=== PATIENT | male | born 1955 | race Two or more races ===

== ENCOUNTER → 2016-10-17 | Outpatient (CLI) | payer OTHER, MEDICAID ==
[~2016-10-17] MED LIST: ALPR0.5T7 PO; AMIT10TA6 PO; EMTRTAB7 PO; GEMF600T3 PO; MULTCHW PO; PRAV20TA3 PO; [UNRECOGNIZED DRUG - CODE] PO; [UNRECOGNIZED DRUG - CODE] PO; [UNRECOGNIZED DRUG - CODE] PO
[2016-10-17 15:03] LABS: Albumin 4.1 g/dL (3.4-5.0); BUN/Creatinine Ratio 17.6; Bilirubin, Total 0.5 mg/dL (0.2-1.0); Potassium 3.9 mmol/L (3.5-5.1); Total Protein 8.1 g/dL (6.4-8.2)
[2016-10-17 15:19] LABS: Basophils # (auto) 0 uL; Basophils % (auto) 0.4 % (0.0-2.0); DEFINITIVE VIEW TRANSMISSION; Eosinophils # (auto) 0.2 uL; Eosinophils % (auto) 3.1 % (0.0-7.0); Hematocrit 51.2 % (41.0-53.0); Hemoglobin 17.5 g/dL (13.5-17.5); Lymphocytes # (auto) 1.8 uL; Lymphocytes % (auto) 35.9 % (10.0-50.0); Mean Corpuscular Hemoglobin 36.2 pg (28.0-32.0); Mean Corpuscular Hgb Conc. 34.2 g/dL (32.0-36.0); Mean Corpuscular Volume 105.8 fL (80.0-100.0); Mean Platelet Volume 8.2 fL (7.4-10.4); Monocytes # (auto) 0.4 uL; Monocytes % (auto) 8.4 % (0.0-12.0); Neutrophils # (auto) 2.6 uL; Neutrophils % (auto) 52.2 % (37.0-80.0); Platelet Count (auto) 208 10^3/uL (140-450); Red Cell Distribution Width 13.9 % (11.6-16.0)
[2016-10-17 18:37] LABS: Macrocytosis Moderate; Platelet Estimate Adequate
[2016-10-18 05:06] LABS: Hematocrit 49.5 % (37.5-51.0); Hemoglobin 17.6 g/dL (12.6-17.7); Immature Granulocytes 0 % (.); MCHC 35.6 g/dL (31.5-35.7); MCV 104 fL (79-97); Monocytes 8 % (.); Neutrophils 52 % (.); Neutrophils (Absolute) 2.7 x10E3/uL (1.4-7.0); Platelets 190 x10E3/uL (150-379); RBC 4.76 x10E6/uL (4.14-5.80); RDW 13.8 % (12.3-15.4); WBC 5.1 x10E3/uL (3.4-10.8)
== END | disposition home or self-care (01) ==
LOC: LAB 13:10
PROVIDERS: ATTEND Internal Medicine
DX: B20 Human immunodeficiency virus [HIV] disease (principal); N34.2 Other urethritis
CPT/HCPCS: 36415; 80053; 84439; 84443; 85025; 85652; 86360; 86592; 86705; 86706; 87340

== ENCOUNTER → 2017-02-01 | Outpatient (CLI) | payer OTHER, MEDICAID ==
[2017-02-01 16:58] LABS: Albumin 4.4 g/dL (3.4-5.0); BUN/Creatinine Ratio 16.4; Calcium 8.6 mg/dL (8.5-10.1); Potassium 3.9 mmol/L (3.5-5.1)
[2017-02-01 17:00] LABS: Bilirubin, Total 0.5 mg/dL (0.2-1.0)
[2017-02-01 17:02] LABS: Basophils # (auto) 0 uL; Basophils % (auto) 0.3 % (0.0-2.0); CONDITION Y; DEFINITIVE SEE PRINTOUT; Eosinophils # (auto) 0.2 uL; Eosinophils % (auto) 3.5 % (0.0-7.0); Hematocrit 49.4 % (41.0-53.0); Hemoglobin 17.3 g/dL (13.5-17.5); Lymphocytes # (auto) 1.3 uL; Lymphocytes % (auto) 24.1 % (10.0-50.0); Mean Corpuscular Hemoglobin 37.3 pg (28.0-32.0); Mean Corpuscular Volume 106.7 fL (80.0-100.0); Monocytes # (auto) 0.5 uL; Monocytes % (auto) 9.8 % (0.0-12.0); Neutrophils # (auto) 3.4 uL; Neutrophils % (auto) 62.3 % (37.0-80.0); Platelet Count (auto) 228 10^3/uL (140-450); Red Cell Distribution Width 12.8 % (11.6-16.0); White Blood Cell 5.4 10^3/uL (4.4-10.8)
[2017-02-02 05:09] LABS: Hematocrit 48.8 % (37.5-51.0); Hemoglobin 17.3 g/dL (12.6-17.7); Immature Granulocytes 0 % (.); MCH 37.3 pg (26.6-33.0); MCHC 35.5 g/dL (31.5-35.7); MCV 105 fL (79-97); Monocytes 10 % (.); Neutrophils 59 % (.); Neutrophils (Absolute) 3.5 x10E3/uL (1.4-7.0); Platelets 215 x10E3/uL (150-379); RBC 4.64 x10E6/uL (4.14-5.80); RDW 13.2 % (12.3-15.4); WBC 5.9 x10E3/uL (3.4-10.8)
[2017-02-02 12:11] LABS: Absolute CD 4 Helper 480 /uL (359-1519)
== END | disposition home or self-care (01) ==
LOC: LAB 15:58
DX: B20 Human immunodeficiency virus [HIV] disease (principal)
CPT/HCPCS: 36415; 80053; 85025; 86360; 87522

== ENCOUNTER → 2017-04-18 | Outpatient (CLI) | payer OTHER, MEDICAID ==
[2017-04-18 11:50] LABS: Magnesium 2.5 mg/dL (1.6-2.6)
== END | disposition home or self-care (01) ==
LOC: LAB 09:49
PROVIDERS: ATTEND Internal Medicine
DX: E78.00 Pure hypercholesterolemia, unspecified (principal); R35.1 Nocturia; B20 Human immunodeficiency virus [HIV] disease; Z79.899 Other long term (current) drug therapy
CPT/HCPCS: 36415; 80061; 82550; 83735; 84153; 84439; 84443; 86360; 86701; 86703

== ENCOUNTER → 2017-11-13 | Outpatient (CLI) | payer OTHER, MEDICAID ==
[2017-11-13 13:01] LABS: Basophils # (auto) 0 uL; Basophils % (auto) 0.6 % (0.0-2.0); Eosinophils # (auto) 0.1 uL; Hematocrit 48.6 % (41.0-53.0); Hemoglobin 17.2 g/dL (13.5-17.5); Lymphocytes # (auto) 1.4 uL; Lymphocytes % (auto) 31.3 % (10.0-50.0); Mean Corpuscular Hemoglobin 37.1 pg (28.0-32.0); Mean Corpuscular Hgb Conc. 35.4 g/dL (32.0-36.0); Mean Corpuscular Volume 104.7 fL (80.0-100.0); Monocytes # (auto) 0.5 uL; Monocytes % (auto) 12.3 % (0.0-12.0); Neutrophils # (auto) 2.3 uL; Neutrophils % (auto) 52.8 % (37.0-80.0); Nucleated Red Blood Cells % 0.1 %; Platelet Count (auto) 199 10^3/uL (140-450); Red Blood Cells 4.64 10^6/uL (4.5-5.90); Red Cell Distribution Width 13.2 % (11.8-14.3); White Blood Cell 4.4 10^3/uL (4.4-10.8)
[2017-11-13 14:02] LABS: Albumin 4.3 g/dL (3.4-5.0); Bilirubin, Total 0.5 mg/dL (0.2-1.0); Potassium 3.9 mmol/L (3.5-5.1); Total Protein 8.3 g/dL (6.4-8.2)
[2017-11-14 08:52] LABS: Hepatitis B Surface Antibody Negative
[2017-11-14 09:07] LABS: Hepatitis B Surface Antigen Negative (Negative)
[2017-11-14 09:36] LABS: Hepatitis B Core IgM Negative; Hepatitis C Antibody Negative (Negative)
[2017-11-14 10:47] LABS: Hepatitis B Core Total AB Positive
== END | disposition home or self-care (01) ==
LOC: LAB 12:18
PROVIDERS: ATTEND Internal Medicine
DX: B20 Human immunodeficiency virus [HIV] disease (principal); I10 Essential (primary) hypertension; E78.5 Hyperlipidemia, unspecified; E78.00 Pure hypercholesterolemia, unspecified; Z79.899 Other long term (current) drug therapy
CPT/HCPCS: 36415; 80053; 82043; 85025; 85652; 86360; 86704; 86705; 86706; 86803; 87340

== ENCOUNTER → 2018-03-04 | Outpatient (CLI) | payer OTHER, MEDICAID ==
[~2018-03-04] MED LIST changes: -GEMF600T3 PO; +GEMF600T7 PO
[2018-03-04 11:52] LABS: Urine WBC None Seen /hpf (0 - 3)
[2018-03-04 12:12] LABS: Urine Bacteria FEW /hpf (None Seen); Urine Blood Negative /uL (Negative); Urine Specific Gravity 1.017 (1.001-1.035)
[2018-03-04 12:57] LABS: Free T4 (Free Thyroxine) 1.05 ng/dL (0.89-1.76)
[2018-03-04 12:58] LABS: Prostate Specific Antigen 0.2 ng/mL (0.0-4.0)
[2018-03-04 13:23] LABS: Albumin 4.3 g/dL (3.4-5.0); BUN/Creatinine Ratio 13.8; Bilirubin, Total 0.6 mg/dL (0.2-1.0); Potassium 3.8 mmol/L (3.5-5.1); Total Protein 8.5 g/dL (6.4-8.2)
[2018-03-04 13:28] LABS: Basophils # (auto) 0 uL; Basophils % (auto) 0.3 % (0.0-2.0); Eosinophils # (auto) 0.1 uL; Monocytes # (auto) 0.7 uL
[2018-03-04 13:32] LABS: Eosinophils % (auto) 1.4 % (0.0-7.0); Hematocrit 50.7 % (41.0-53.0); Hemoglobin 17.6 g/dL (13.5-17.5); Lymphocytes # (auto) 1.3 uL; Lymphocytes % (auto) 14.9 % (10.0-50.0); Mean Corpuscular Hemoglobin 37.1 pg (28.0-32.0); Mean Corpuscular Hgb Conc. 34.6 g/dL (32.0-36.0); Mean Corpuscular Volume 107.1 fL (80.0-100.0); Monocytes % (auto) 7.4 % (0.0-12.0); Neutrophils # (auto) 6.9 uL; Platelet Count (auto) 206 10^3/uL (140-450); Red Blood Cells 4.74 10^6/uL (4.5-5.90); Red Cell Distribution Width 12.8 % (11.8-14.3)
== END | disposition home or self-care (01) ==
LOC: LAB 11:14
PROVIDERS: ATTEND Internal Medicine
DX: B20 Human immunodeficiency virus [HIV] disease (principal); E78.5 Hyperlipidemia, unspecified; N40.0 Benign prostatic hyperplasia without lower urinary tract symptoms; I10 Essential (primary) hypertension
CPT/HCPCS: 36415; 80053; 80061; 81001; 84153; 84439; 84443; 85025; 86360

== ENCOUNTER → 2018-11-14 | Outpatient (CLI) | payer OTHER, MEDICAID ==
[2018-11-14 10:36] LABS: Basophils # (auto) 0 uL; Basophils % (auto) 0.5 % (0.0-2.0); Eosinophils % (auto) 2.9 % (0.0-7.0); Lymphocytes # (auto) 1.3 uL; Neutrophils # (auto) 3.1 uL; Nucleated Red Blood Cells % 0.1 %; Red Cell Distribution Width 13.3 % (11.8-14.3)
[2018-11-14 10:38] LABS: Eosinophils # (auto) 0.2 uL; Hematocrit 50.2 % (41.0-53.0); Hemoglobin 17.4 g/dL (13.5-17.5); Lymphocytes % (auto) 25.9 % (10.0-50.0); Mean Corpuscular Hemoglobin 36.8 pg (28.0-32.0); Mean Corpuscular Hgb Conc. 34.7 g/dL (32.0-36.0); Mean Corpuscular Volume 106.1 fL (80.0-100.0); Monocytes # (auto) 0.5 uL; Monocytes % (auto) 10.7 % (0.0-12.0); Platelet Count (auto) 192 10^3/uL (140-450); Red Blood Cells 4.73 10^6/uL (4.5-5.90); White Blood Cell 5.1 10^3/uL (4.4-10.8)
[2018-11-14 10:56] LABS: Urine Bacteria NONE SEEN /hpf (None Seen); Urine Blood TRACE /uL (Negative); Urine Specific Gravity 1.016 (1.001-1.035); Urine WBC 9 /hpf (0 - 3)
[2018-11-14 11:18] LABS: Calcium 8.7 mg/dL (8.5-10.1)
[2018-11-14 11:24] LABS: BUN/Creatinine Ratio 15.1; Bilirubin, Total 0.4 mg/dL (0.2-1.0)
== END | disposition home or self-care (01) ==
LOC: LAB 10:06
PROVIDERS: ATTEND Internal Medicine
DX: B20 Human immunodeficiency virus [HIV] disease (principal); R53.83 Other fatigue
CPT/HCPCS: 36415; 80053; 80061; 81001; 84439; 84443; 85025; 85652; 86360; 87536

== ENCOUNTER → 2019-12-01 | Outpatient (CLI) | payer MEDICAID, OTHER ==
[2019-12-01 12:00] LABS: Basophils # (auto) 0 10 ^3/uL (0-0.2); Basophils % (auto) 0.4 % (0.0-2.0); Eosinophils # (auto) 0.1 10 ^3/uL (0-0.8); Lymphocytes # (auto) 1.7 10 ^3/uL (0.4-5.4); Mean Corpuscular Hemoglobin 36.1 pg (28.0-32.0); Monocytes # (auto) 0.6 10 ^3/uL (0-1.3)
[2019-12-01 12:04] LABS: Eosinophils % (auto) 2.8 % (0.0-7.0); Hematocrit 48.6 % (41.0-53.0); Hemoglobin 16.9 g/dL (13.5-17.5); Lymphocytes % (auto) 37.3 % (10.0-50.0); Mean Corpuscular Hgb Conc. 34.8 g/dL (32.0-36.0); Monocytes % (auto) 12.9 % (0.0-12.0); Neutrophils # (auto) 2.1 10 ^3/uL (1.6-8.6); Neutrophils % (auto) 46.6 % (37.0-80.0); Nucleated Red Blood Cells % 0.5 %; Platelet Count (auto) 176 10^3/uL (140-450); Red Blood Cells 4.67 10^6/uL (4.5-5.90); Red Cell Distribution Width 13.4 % (11.8-14.3); White Blood Cell 4.4 10^3/uL (4.4-10.8)
[2019-12-01 12:06] LABS: Urine Bacteria NONE SEEN /hpf (None Seen); Urine Blood Negative /uL (Negative); Urine Specific Gravity 1.016 (1.001-1.035); Urine WBC <1 /hpf (0 - 3)
[2019-12-01 12:52] LABS: Albumin 3.8 g/dL (3.4-5.0); Calcium 8.9 mg/dL (8.5-10.1); Potassium 3.9 mmol/L (3.5-5.1)
[2019-12-01 12:56] LABS: BUN/Creatinine Ratio 13.6; Bilirubin, Total 0.5 mg/dL (0.2-1.0); Total Protein 7.9 g/dL (6.4-8.2)
[2019-12-01 12:59] LABS: Free T4 (Free Thyroxine) 0.97 ng/dL (0.89-1.76)
[2019-12-01 13:00] LABS: Prostate Specific Antigen 0.17 ng/mL (0.0-4.0)
== END | disposition home or self-care (01) ==
LOC: LAB 11:30
PROVIDERS: ATTEND Internal Medicine
DX: E78.5 Hyperlipidemia, unspecified (principal); R11.0 Nausea; R35.8 Other polyuria; B20 Human immunodeficiency virus [HIV] disease
CPT/HCPCS: 36415; 80053; 80061; 81001; 82150; 83036; 83690; 84153; 84439; 84443; 85025; 85652; 86160

== ENCOUNTER → 2021-01-10 | Outpatient (CLI) | payer OTHER ==
[~2021-01-10] MED LIST changes: +GEMF-19 PO; -GEMF600T7 PO
[2021-01-10 10:47] LABS: Urine WBC None Seen /hpf (0 - 3)
[2021-01-10 10:51] LABS: Basophils # (auto) 0 10 ^3/uL (0-0.2); Basophils % (auto) 0.3 % (0.0-2.0); Eosinophils # (auto) 0.1 10 ^3/uL (0-0.8); Eosinophils % (auto) 1.6 % (0.0-7.0); Hematocrit 50.4 % (41.0-53.0); Hemoglobin 17.4 g/dL (13.5-17.5); Lymphocytes % (auto) 28.5 % (10.0-50.0); Mean Corpuscular Hemoglobin 36.1 pg (28.0-32.0); Mean Corpuscular Hgb Conc. 34.5 g/dL (32.0-36.0); Mean Corpuscular Volume 104.5 fL (80.0-100.0); Monocytes # (auto) 0.7 10 ^3/uL (0-1.3); Neutrophils # (auto) 4.2 10 ^3/uL (1.6-8.6); Neutrophils % (auto) 59.6 % (37.0-80.0); Nucleated Red Blood Cells % 0.1 %; Red Blood Cells 4.82 10^6/uL (4.5-5.90); Red Cell Distribution Width 13.4 % (11.8-14.3)
[2021-01-10 11:09] LABS: Urine Bacteria NONE SEEN /hpf (None Seen); Urine Blood Negative /uL (Negative); Urine Specific Gravity 1.013 (1.001-1.035)
[2021-01-10 11:41] LABS: Albumin 3.6 g/dL (3.4-5.0); Potassium 3.8 mmol/L (3.5-5.1)
[2021-01-10 11:49] LABS: Free T4 (Free Thyroxine) 0.93 ng/dL (0.89-1.76); Prostate Specific Antigen 0.15 ng/mL (0.0-4.0)
[2021-01-10 11:50] LABS: BUN/Creatinine Ratio 12.8; Bilirubin, Total 0.7 mg/dL (0.2-1.0); Calcium 8.9 mg/dL (8.5-10.1); Total Protein 7.2 g/dL (6.4-8.2)
== END | disposition home or self-care (01) ==
LOC: LAB 10:25
PROVIDERS: ATTEND Internal Medicine
DX: G62.9 Polyneuropathy, unspecified (principal); E78.5 Hyperlipidemia, unspecified; B20 Human immunodeficiency virus [HIV] disease
CPT/HCPCS: 36415; 80053; 80061; 81001; 82607; 84153; 84439; 84443; 85025; 85652

== ENCOUNTER → 2021-04-07 | Outpatient (CLI) | payer OTHER ==
[~2021-04-07] MED LIST changes: -AMIT10TA6 PO; +AMIT1TAB34 PO
[2021-04-07 16:05] LABS: Basophils # (auto) 0 10 ^3/uL (0-0.2); Basophils % (auto) 0.4 % (0.0-2.0); Eosinophils # (auto) 0.1 10 ^3/uL (0-0.8); Eosinophils % (auto) 1.2 % (0.0-7.0); Lymphocytes # (auto) 1.9 10 ^3/uL (0.4-5.4); Monocytes # (auto) 0.7 10 ^3/uL (0-1.3)
[2021-04-07 16:07] LABS: Hemoglobin 17.6 g/dL (13.5-17.5); Lymphocytes % (auto) 34.6 % (10.0-50.0); Mean Corpuscular Hemoglobin 37.2 pg (28.0-32.0); Mean Corpuscular Hgb Conc. 35.1 g/dL (32.0-36.0); Mean Corpuscular Volume 106.1 fL (80.0-100.0); Neutrophils # (auto) 2.9 10 ^3/uL (1.6-8.6); Neutrophils % (auto) 51.8 % (37.0-80.0); Red Blood Cells 4.71 10^6/uL (4.5-5.90); Red Cell Distribution Width 13.6 % (11.8-14.3); White Blood Cell 5.6 10^3/uL (4.4-10.8)
[2021-04-07 16:31] LABS: Albumin 4.3 g/dL (3.4-5.0); Calcium 9.2 mg/dL (8.5-10.1); Potassium 4.2 mmol/L (3.5-5.1)
[2021-04-07 16:34] LABS: BUN/Creatinine Ratio 16.4; Bilirubin, Total 0.5 mg/dL (0.2-1.0); Total Protein 7.8 g/dL (6.4-8.2)
== END | disposition home or self-care (01) ==
LOC: LAB 15:09
PROVIDERS: ATTEND Specialist
DX: B20 Human immunodeficiency virus [HIV] disease (principal)
CPT/HCPCS: 36415; 80053; 86360; 86703

== ENCOUNTER → 2022-11-13 | Outpatient (CLI) | payer OTHER ==
[2022-11-13 11:06] LABS: Basophils # (auto) 0 10 ^3/uL (0-0.2); Basophils % (auto) 0.4 % (0.0-2.0); Eosinophils # (auto) 0.1 10 ^3/uL (0-0.8); Lymphocytes # (auto) 1.3 10 ^3/uL (0.4-5.4); Nucleated Red Blood Cells % 0.1 %; White Blood Cell 4.4 10^3/uL (4.4-10.8)
[2022-11-13 11:09] LABS: Eosinophils % (auto) 2.6 % (0.0-7.0); Hematocrit 50.4 % (41.0-53.0); Lymphocytes % (auto) 28.7 % (10.0-50.0); Mean Corpuscular Hemoglobin 36.7 pg (28.0-32.0); Mean Corpuscular Hgb Conc. 33.8 g/dL (32.0-36.0); Mean Corpuscular Volume 108.8 fL (80.0-100.0); Monocytes # (auto) 0.5 10 ^3/uL (0-1.3); Monocytes % (auto) 10.4 % (0.0-12.0); Neutrophils # (auto) 2.5 10 ^3/uL (1.6-8.6); Neutrophils % (auto) 57.9 % (37.0-80.0); Red Blood Cells 4.63 10^6/uL (4.5-5.90)
[2022-11-13 11:18] LABS: Urine Bacteria NONE SEEN /hpf (None Seen); Urine Blood Negative /uL (Negative); Urine Specific Gravity 1.023 (1.001-1.035); Urine WBC <1 /hpf (0 - 3)
[2022-11-13 12:17] LABS: Potassium 4.3 mmol/L (3.5-5.1)
[2022-11-13 12:27] LABS: Free T4 (Free Thyroxine) 0.97 ng/dL (0.89-1.76); Prostate Specific Antigen 0.15 ng/mL (0.0-4.0)
[2022-11-13 12:38] LABS: Albumin 3.9 g/dL (3.4-5.0); BUN/Creatinine Ratio 23.3 (10.0-20.0); Bilirubin, Total 0.3 mg/dL (0.2-1.0); Calcium 8.8 mg/dL (8.5-10.1); Total Protein 7.6 g/dL (6.4-8.2)
== END | disposition home or self-care (01) ==
LOC: LAB 10:17
PROVIDERS: ATTEND Internal Medicine
DX: I25.10 Atherosclerotic heart disease of native coronary artery without angina pectoris (principal); I10 Essential (primary) hypertension
CPT/HCPCS: 36415; 80053; 80061; 81001; 82607; 84153; 84439; 84443; 85025; 85652; 86701; 86703

== ENCOUNTER → 2022-11-27 | Outpatient (CLI) | payer OTHER ==
[~2022-11-27] MED LIST changes: +AMIT10TA12 PO; -AMIT1TAB34 PO; -GEMF-19 PO; +GEMF-66 PO; +LOPI1TAB2 PO; -[UNRECOGNIZED DRUG - CODE] PO
== END | disposition home or self-care (01) ==
LOC: XYW 14:54
PROVIDERS: ATTEND Internal Medicine
DX: I07.1 Rheumatic tricuspid insufficiency (principal); I35.8 Other nonrheumatic aortic valve disorders
CPT/HCPCS: 93306

== ENCOUNTER → 2023-02-20 | Outpatient (CLI) | payer OTHER | END | disposition home or self-care (01) | LOC: XYW 08:18 | PROVIDERS: ATTEND Internal Medicine | DX: R42 Dizziness and giddiness (principal); I50.9 Heart failure, unspecified | CPT/HCPCS: 93886 ==

== ENCOUNTER → 2023-02-26 | Outpatient (CLI) | payer OTHER ==
[2023-02-26 11:28] LABS: Basophils # (auto) 0 10 ^3/uL (0-0.2); Basophils % (auto) 0.3 % (0.0-2.0); Eosinophils # (auto) 0.2 10 ^3/uL (0-0.8); Eosinophils % (auto) 2.8 % (0.0-7.0); Hemoglobin 17.5 g/dL (13.5-17.5); Monocytes # (auto) 0.5 10 ^3/uL (0-1.3); Neutrophils # (auto) 3.6 10 ^3/uL (1.6-8.6)
[2023-02-26 11:29] LABS: Hematocrit 50.6 % (41.0-53.0); Lymphocytes # (auto) 1.7 10 ^3/uL (0.4-5.4); Lymphocytes % (auto) 27.7 % (10.0-50.0); Mean Corpuscular Hemoglobin 37.3 pg (28.0-32.0); Mean Corpuscular Hgb Conc. 34.5 g/dL (32.0-36.0); Monocytes % (auto) 8.9 % (0.0-12.0); Neutrophils % (auto) 60.3 % (37.0-80.0); Red Blood Cells 4.68 10^6/uL (4.5-5.90); Red Cell Distribution Width 13.1 % (11.8-14.3)
[2023-02-26 12:15] LABS: Alanine Aminotransferase 25 U/L (7-40); Albumin 4.6 g/dL (3.2-4.8); Alkaline Phosphatase 71 U/L (46-116); Anion Gap 5.4 (5-15); Aspartate Aminotransferase 13 U/L (13-40); BUN/Creatinine Ratio 10.2 (10.0-20.0); Bilirubin, Total 0.7 mg/dL (0.2-1.0); Blood Urea Nitrogen 13 mg/dL (9-23); Calcium 9.4 mg/dL (8.5-10.1); Carbon Dioxide 27.6 mmol/L (20-30); Chloride 105 mmol/L (98-107); Glucose 98 mg/dL (74-106); Potassium 4.5 mmol/L (3.5-5.1); Sodium 138 mmol/L (136-145); Total Protein 7.6 g/dL (5.7-8.2)
== END | disposition home or self-care (01) ==
LOC: LAB 11:08
PROVIDERS: ATTEND Specialist
DX: B20 Human immunodeficiency virus [HIV] disease (principal)
CPT/HCPCS: 36415; 80053; 86360

== ENCOUNTER 2023-05-21 10:10 | Emergency (ER) | payer OTHER ==
[~2023-05-21] VITALS: Ht 172.7 cm; Wt 68.4 kg
[2023-05-21 13:05] VITALS: BP 100/64; PULSE 72; RESP 18; TEMP 97.3; O2SAT 97
[2023-05-21] MEDS ORDERED: PENICILLIN G BENZ 1,200,000 UNITS/2 ML SYRG IM ONE (14:00)
== END 2023-05-21 14:56 | disposition home or self-care (01) ==
LOC: ER 10:10
DX: A53.9 Syphilis, unspecified (principal); I10 Essential (primary) hypertension; E78.5 Hyperlipidemia, unspecified; Z88.2 Allergy status to sulfonamides; Z79.899 Other long term (current) drug therapy
CPT/HCPCS: 96372; 99283; J0561

== ENCOUNTER → 2023-11-29 | Outpatient (CLI) | payer OTHER ==
[~2023-11-29] MED LIST changes: -LOPI1TAB2 PO; +[UNRECOGNIZED DRUG - CODE] PO
[2023-11-29 16:22] LABS: Basophils # (auto) 0 10 ^3/uL (0-0.2); Basophils % (auto) 0.3 % (0.0-2.0); Eosinophils # (auto) 0.1 10 ^3/uL (0-0.8); Eosinophils % (auto) 2.1 % (0.0-7.0); Hematocrit 50.8 % (41.0-53.0); Hemoglobin 17.4 g/dL (13.5-17.5); Lymphocytes # (auto) 1.6 10 ^3/uL (0.4-5.4); Lymphocytes % (auto) 28.5 % (10.0-50.0); Mean Corpuscular Hemoglobin 37.5 pg (28.0-32.0); Mean Corpuscular Hgb Conc. 34.3 g/dL (32.0-36.0); Mean Corpuscular Volume 109.3 fL (80.0-100.0); Monocytes # (auto) 0.6 10 ^3/uL (0-1.3); Monocytes % (auto) 9.9 % (0.0-12.0); Neutrophils # (auto) 3.4 10 ^3/uL (1.6-8.6); Neutrophils % (auto) 59.2 % (37.0-80.0); Red Blood Cells 4.64 10^6/uL (4.5-5.90); Red Cell Distribution Width 13.2 % (11.8-14.3); White Blood Cell 5.7 10^3/uL (4.4-10.8)
[2023-11-29 16:47] LABS: Alanine Aminotransferase 16 U/L (7-40); Albumin 4.5 g/dL (3.2-4.8); Alkaline Phosphatase 69 U/L (46-116); Anion Gap 3 (5-15); Aspartate Aminotransferase 9 U/L (13-40); BUN/Creatinine Ratio 20.4 (10.0-20.0); Blood Urea Nitrogen 22 mg/dL (9-23); Calcium 9.4 mg/dL (8.5-10.1); Carbon Dioxide 28 mmol/L (20-30); Chloride 111 mmol/L (98-107); Glucose 119 mg/dL (74-106); Potassium 4.1 mmol/L (3.5-5.1); Sodium 142 mmol/L (136-145)
[2023-11-29 16:48] LABS: Bilirubin, Total 0.4 mg/dL (0.2-1.0); Total Protein 7.2 g/dL (5.7-8.2)
[2023-11-30 05:08] LABS: Basos 0 % (Not Estab.); Eos 2 % (Not Estab.); Eos (Absolute) 0.1 x10E3/uL (0.0-0.4); Hematocrit 50.3 % (37.5-51.0); Hemoglobin 17.9 g/dL (13.0-17.7); Lymphs 32 % (Not Estab.); Lymphs (Absolute) 1.8 x10E3/uL (0.7-3.1); MCH 37.6 pg (26.6-33.0); MCHC 35.6 g/dL (31.5-35.7); MCV 106 fL (79-97); Monocytes 10 % (Not Estab.); Monocytes (Absolute) 0.6 x10E3/uL (0.1-0.9); Neutrophils 56 % (Not Estab.); Neutrophils (Absolute) 3.1 x10E3/uL (1.4-7.0); Platelets 197 x10E3/uL (150-450); RBC 4.76 x10E6/uL (4.14-5.80); WBC 5.6 x10E3/uL (3.4-10.8)
[2023-11-30 09:07] LABS: % CD 4 Pos Lymph 27.6 % (30.8-58.5); % CD 8 Pos Lymph 40.1 % (12.0-35.5); Absolute CD 4 Helper 497 /uL (359-1519); CD4/CD8 Ratio 0.69 (0.92-3.72)
== END | disposition home or self-care (01) ==
LOC: LAB 16:04
PROVIDERS: ATTEND Specialist
DX: B20 Human immunodeficiency virus [HIV] disease (principal); A53.9 Syphilis, unspecified
CPT/HCPCS: 36415; 80053; 85025; 86360

== ENCOUNTER → 2024-02-19 | Outpatient (CLI) | payer OTHER ==
[~2024-02-19] MED LIST changes: +LOPI1TAB PO; -[UNRECOGNIZED DRUG - CODE] PO
[2024-02-19 10:51] LABS: Urine Bacteria None Seen /hpf (None Seen)
[2024-02-19 11:14] LABS: Urine Blood 1+ /uL (Negative); Urine Clarity Clear (Clear); Urine Color Yellow (Yellow); Urine Protein, UAD TRACE (Negative); Urine Specific Gravity 1.028 (1.001-1.035); Urine Urobilinogen Normal (Negative); Urine WBC 1 /hpf (0 - 3); Urine pH 5.5 (5.0-9.0)
[2024-02-19 11:23] LABS: Alanine Aminotransferase 28 U/L (7-40); Alkaline Phosphatase 67 U/L (46-116); Anion Gap 6 (5-15); BUN/Creatinine Ratio 13.4 (10.0-20.0); Blood Urea Nitrogen 16 mg/dL (9-23); Calcium 9.4 mg/dL (8.7-10.4); Carbon Dioxide 24 mmol/L (20-30); Chloride 109 mmol/L (98-107); Glucose 97 mg/dL (74-106); Potassium 4.1 mmol/L (3.5-5.1); Sodium 139 mmol/L (136-145); Triglycerides 244 mg/dL (< 150)
[2024-02-19 11:24] LABS: Aspartate Aminotransferase 17 U/L (13-40); LDL Cholesterol 43 mg/dL (< 100)
[2024-02-19 11:25] LABS: Albumin 4.3 g/dL (3.2-4.8); Bilirubin, Total 0.7 mg/dL (0.2-1.0); Cholesterol 107 mg/dL (< 200); HDL Cholesterol 31 mg/dL (40-59); Total Protein 7.2 g/dL (5.7-8.2)
[2024-02-19 11:33] LABS: Erythrocyte Sedimentation Rate 2 mm/hr (0-20)
[2024-02-19 11:42] LABS: Basophils # (auto) 0 10 ^3/uL (0-0.2); Eosinophils # (auto) 0.1 10 ^3/uL (0-0.8); Monocytes # (auto) 0.6 10 ^3/uL (0-1.3); Red Cell Distribution Width 13.7 % (11.8-14.3)
[2024-02-19 11:44] LABS: Basophils % (auto) 0.5 % (0.0-2.0); Eosinophils % (auto) 2.2 % (0.0-7.0); Hematocrit 50.9 % (41.0-53.0); Hemoglobin 17.8 g/dL (13.5-17.5); Lymphocytes # (auto) 1.8 10 ^3/uL (0.4-5.4); Lymphocytes % (auto) 29.5 % (10.0-50.0); Mean Corpuscular Hgb Conc. 35.1 g/dL (32.0-36.0); Mean Corpuscular Volume 108.3 fL (80.0-100.0); Monocytes % (auto) 10.4 % (0.0-12.0); Neutrophils # (auto) 3.4 10 ^3/uL (1.6-8.6); Neutrophils % (auto) 57.4 % (37.0-80.0); Nucleated Red Blood Cells % 0.6 %; Platelet Count (auto) 170 10^3/uL (140-450); White Blood Cell 5.9 10^3/uL (4.4-10.8)
== END | disposition home or self-care (01) ==
LOC: LAB 10:32
PROVIDERS: ATTEND Internal Medicine
DX: I10 Essential (primary) hypertension (principal); I25.10 Atherosclerotic heart disease of native coronary artery without angina pectoris
CPT/HCPCS: 36415; 80053; 80061; 81001; 84153; 84443; 85025; 85652; 86360; 87536

== ENCOUNTER → 2024-05-18 | Outpatient (CLI) | payer OTHER ==
[2024-05-18 13:42] LABS: Basophils # (auto) 0 10 ^3/uL (0-0.2); Eosinophils # (auto) 0.1 10 ^3/uL (0-0.8); Mean Corpuscular Hemoglobin 37.9 pg (28.0-32.0); Monocytes # (auto) 0.5 10 ^3/uL (0-1.3); Neutrophils # (auto) 3.1 10 ^3/uL (1.6-8.6); Red Cell Distribution Width 12.6 % (11.8-14.3)
[2024-05-18 13:45] LABS: Basophils % (auto) 0.5 % (0.0-2.0); Eosinophils % (auto) 1.2 % (0.0-7.0); Hematocrit 51.2 % (41.0-53.0); Hemoglobin 17.8 g/dL (13.5-17.5); Lymphocytes # (auto) 1.4 10 ^3/uL (0.4-5.4); Lymphocytes % (auto) 27.9 % (10.0-50.0); Mean Corpuscular Hgb Conc. 34.7 g/dL (32.0-36.0); Mean Corpuscular Volume 109.2 fL (80.0-100.0); Monocytes % (auto) 10.4 % (0.0-12.0); Nucleated Red Blood Cells % 0.2 %; Platelet Count (auto) 185 10^3/uL (140-450); Red Blood Cells 4.69 10^6/uL (4.5-5.90); White Blood Cell 5.2 10^3/uL (4.4-10.8)
[2024-05-18 13:57] LABS: Wright Stain Ready for Review
[2024-05-18 14:22] LABS: Alanine Aminotransferase 33 U/L (7-40); Albumin 4.4 g/dL (3.2-4.8); Alkaline Phosphatase 86 U/L (46-116); Anion Gap 6 (5-15); Aspartate Aminotransferase 17 U/L (13-40); BUN/Creatinine Ratio 12.7 (10.0-20.0); Blood Urea Nitrogen 15 mg/dL (9-23); Calcium 10.1 mg/dL (8.7-10.4); Carbon Dioxide 28 mmol/L (20-31); Chloride 107 mmol/L (98-107); Glucose 104 mg/dL (74-106); Potassium 4.5 mmol/L (3.5-5.1); Sodium 141 mmol/L (136-145)
[2024-05-18 14:23] LABS: Bilirubin, Total 0.5 mg/dL (0.2-1.0); Total Protein 7.3 g/dL (5.7-8.2)
[2024-05-19 09:07] LABS: Basos 1 % (Not Estab.); Eos 2 % (Not Estab.); Eos (Absolute) 0.1 x10E3/uL (0.0-0.4); Hematocrit 51.4 % (37.5-51.0); Immature Granulocytes (Abs) 0 x10E3/uL (0.0-0.1); Lymphs 30 % (Not Estab.); Lymphs (Absolute) 1.6 x10E3/uL (0.7-3.1); MCH 38.1 pg (26.6-33.0); MCV 109 fL (79-97); Monocytes 10 % (Not Estab.); Monocytes (Absolute) 0.6 x10E3/uL (0.1-0.9); Neutrophils 57 % (Not Estab.); Platelets 189 x10E3/uL (150-450); RBC 4.73 x10E6/uL (4.14-5.80); RDW 12.1 % (11.6-15.4); WBC 5.3 x10E3/uL (3.4-10.8)
[2024-05-19 12:07] LABS: % CD 4 Pos Lymph 25.8 % (30.8-58.5); % CD 8 Pos Lymph 40.7 % (12.0-35.5); Absolute CD 4 Helper 413 /uL (359-1519); CD4/CD8 Ratio 0.63 (0.92-3.72)
== END | disposition home or self-care (01) ==
LOC: LAB 13:06
PROVIDERS: ATTEND Internal Medicine
DX: B20 Human immunodeficiency virus [HIV] disease (principal); I25.10 Atherosclerotic heart disease of native coronary artery without angina pectoris; D75.89 Other specified diseases of blood and blood-forming organs
CPT/HCPCS: 36415; 80053; 82607; 85025; 86360

== ENCOUNTER 2024-12-01 15:13 | Outpatient (CLI) | payer OTHER ==
[2024-12-01 15:36] LABS: Basophils # (auto) 0 10 ^3/uL (0-0.2); Basophils % (auto) 0.2 % (0.0-2.0); Eosinophils # (auto) 0.1 10 ^3/uL (0-0.8); Eosinophils % (auto) 1.1 % (0.0-7.0); Hematocrit 53.2 % (41.0-53.0); Hemoglobin 18.4 g/dL (13.5-17.5); Lymphocytes # (auto) 1.8 10 ^3/uL (0.4-5.4); Lymphocytes % (auto) 23.4 % (10.0-50.0); Mean Corpuscular Hgb Conc. 34.6 g/dL (32.0-36.0); Mean Corpuscular Volume 106.8 fL (80.0-100.0); Monocytes # (auto) 0.7 10 ^3/uL (0-1.3); Neutrophils # (auto) 5.1 10 ^3/uL (1.6-8.6); Neutrophils % (auto) 66.3 % (37.0-80.0); Nucleated Red Blood Cells % 0.1 %; Platelet Count (auto) 164 10^3/uL (140-450); Red Blood Cells 4.98 10^6/uL (4.5-5.90); Red Cell Distribution Width 13.5 % (11.8-14.3); White Blood Cell 7.7 10^3/uL (4.4-10.8)
[2024-12-01 16:05] LABS: Alanine Aminotransferase 28 U/L (7-40); Alkaline Phosphatase 87 U/L (46-116); Anion Gap 9 (5-15); Aspartate Aminotransferase 16 U/L (13-40); BUN/Creatinine Ratio 13.2 (10.0-20.0); Blood Urea Nitrogen 16 mg/dL (9-23); Carbon Dioxide 27 mmol/L (20-31); Chloride 104 mmol/L (98-107); Glucose 96 mg/dL (74-106); Potassium 4.2 mmol/L (3.5-5.1); Sodium 140 mmol/L (136-145); Total Protein 7.9 g/dL (5.7-8.2)
[2024-12-01 16:06] LABS: Bilirubin, Total 0.6 mg/dL (0.2-1.0)
[2024-12-01 16:07] LABS: Albumin 4.9 g/dL (3.2-4.8); Calcium 10.4 mg/dL (8.7-10.4)
[2024-12-02 06:06] LABS: Basos 1 % (Not Estab.); Eos 1 % (Not Estab.); Eos (Absolute) 0.1 x10E3/uL (0.0-0.4); Hematocrit 52.2 % (37.5-51.0); Hemoglobin 18.3 g/dL (13.0-17.7); Immature Granulocytes (Abs) 0 x10E3/uL (0.0-0.1); Lymphs 24 % (Not Estab.); MCH 37.1 pg (26.6-33.0); MCHC 35.1 g/dL (31.5-35.7); MCV 106 fL (79-97); Monocytes 8 % (Not Estab.); Monocytes (Absolute) 0.6 x10E3/uL (0.1-0.9); Neutrophils 66 % (Not Estab.); Neutrophils (Absolute) 5.3 x10E3/uL (1.4-7.0); Platelets 173 x10E3/uL (150-450); RBC 4.93 x10E6/uL (4.14-5.80); RDW 12.5 % (11.6-15.4)
[2024-12-02 16:07] LABS: % CD 8 Pos Lymph 49.4 % (12.0-35.5); Absolute CD 4 Helper 400 /uL (359-1519)
== END 2024-12-01 17:00 | disposition home or self-care (01) ==
LOC: LAB 15:13
PROVIDERS: ATTEND Specialist
DX: B20 Human immunodeficiency virus [HIV] disease (principal)
CPT/HCPCS: 36415; 80053; 85025; 86360; 87536

== ENCOUNTER 2025-02-18 10:12 | Outpatient (CLI) | payer OTHER ==
[2025-02-18 10:45] LABS: Hematocrit 49.1 % (41.0-53.0); Hemoglobin 17.5 g/dL (13.5-17.5); Mean Corpuscular Hemoglobin 37.7 pg (28.0-32.0); Mean Corpuscular Volume 106.3 fL (80.0-100.0); Nucleated Red Blood Cells % 0.1 %
[2025-02-18 10:47] LABS: Urine Protein, UAD Negative (Negative)
[2025-02-18 11:01] LABS: Prostate Specific Antigen 0.16 ng/mL (0.0-4.0)
[2025-02-18 11:03] LABS: Alanine Aminotransferase 27 U/L (7-40); Albumin 4.5 g/dL (3.2-4.8); Alkaline Phosphatase 69 U/L (46-116); Anion Gap 6 (5-15); BUN/Creatinine Ratio 9.6 (10.0-20.0); Blood Urea Nitrogen 11 mg/dL (9-23); Calcium 8.9 mg/dL (8.7-10.4); Carbon Dioxide 26 mmol/L (20-31); Cholesterol 102 mg/dL (< 200); Glucose 94 mg/dL (74-106); Potassium 4.4 mmol/L (3.5-5.1); Sodium 140 mmol/L (136-145); Total Protein 7.3 g/dL (5.7-8.2)
[2025-02-18 11:04] LABS: Bilirubin, Total 0.7 mg/dL (0.2-1.0)
[2025-02-18 11:05] LABS: Free T4 (Free Thyroxine) 1.08 ng/dL (0.89-1.76)
[2025-02-18 11:20] LABS: Chloride 108 mmol/L (98-107); HDL Cholesterol 34 mg/dL (40-59); Triglycerides 248 mg/dL (< 150)
[2025-02-19 04:07] LABS: Hematocrit 51.0 % (37.5-51.0); Hemoglobin 17.8 g/dL (13.0-17.7); MCH 37.3 pg (26.6-33.0); MCHC 34.9 g/dL (31.5-35.7); MCV 107 fL (79-97); RBC 4.77 x10E6/uL (4.14-5.80); RDW 12.3 % (11.6-15.4); WBC 5.2 x10E3/uL (3.4-10.8)
[2025-02-19 12:07] LABS: CD4/CD8 Ratio 0.72 (0.92-3.72)
== END 2025-02-18 17:00 | disposition home or self-care (01) ==
LOC: LAB 10:12
PROVIDERS: ATTEND Internal Medicine
DX: B20 Human immunodeficiency virus [HIV] disease (principal); I25.10 Atherosclerotic heart disease of native coronary artery without angina pectoris
CPT/HCPCS: 36415; 80053; 80061; 81001; 84153; 84439; 84443; 85025; 85652; 86360; 87536